=== PATIENT | female | born 1960 | race Caucasian/White ===

== ENCOUNTER 2017-02-11 22:14 | Emergency (ER) | payer MEDICARE, MEDICAID ==
[~2017-02-11 22:14] MED LIST: ALPRAZOLAM0.25 M3 PO; AMLODIPINE BESY10 M1 PO; BP MED; CYMBALTA30 M1 PO; DILAUDID4 M1 PO; LEVAQUIN500 M1 PO; PRILOSEC20 M1 PO; SENNA8.6 M2 PO
[2017-02-11] MEDS ORDERED: OXYCONTIN40 M2 PO (22:45)
[2017-02-11] MEDS ORDERED: MIRALAX17 G2 (22:46)
[2017-02-11] MEDS ORDERED: NEURONTIN100 M1 (22:46)
[2017-02-21] MEDS ORDERED: FEROSUL325 M1 PO (00:34)
== END 2017-02-11 23:45 ==
LOC: EDMED 22:14
DX: R20.0 Anesthesia of skin (principal); I10 Essential (primary) hypertension; F41.9 Anxiety disorder, unspecified; K21.9 Gastro-esophageal reflux disease without esophagitis; F17.200 Nicotine dependence, unspecified, uncomplicated; Z85.41 Personal history of malignant neoplasm of cervix uteri; Z90.710 Acquired absence of both cervix and uterus; Z98.890 Other specified postprocedural states; Z79.899 Other long term (current) drug therapy